=== PATIENT | male | born 1940 | race Asian ===

== ENCOUNTER → 2016-10-13 | Outpatient (CLI) | payer MEDICARE, OTHER | END | disposition home or self-care (01) | LOC: CFH 12:00 | PROVIDERS: ATTEND Internal Medicine | DX: Z13.220 Encounter for screening for lipoid disorders (principal); Z12.11 Encounter for screening for malignant neoplasm of colon; Z12.5 Encounter for screening for malignant neoplasm of prostate; E78.1 Pure hyperglyceridemia; I10 Essential (primary) hypertension; H40.9 Unspecified glaucoma; G47.30 Sleep apnea, unspecified; I63.9 Cerebral infarction, unspecified; R01.1 Cardiac murmur, unspecified; E03.9 Hypothyroidism, unspecified; R97.20 Elevated prostate specific antigen [PSA] | CPT/HCPCS: 36415; 84443 ==